=== PATIENT | female | born 1950 | race Caucasian/White ===

== ENCOUNTER → 2017-03-24 | Outpatient (CLI) | payer OTHER, MEDICARE | LOC: BMCIMAGING 09:13 | PROVIDERS: ATTEND Physician Assistant | DX: M16.11 Unilateral primary osteoarthritis, right hip (principal); Z96.642 Presence of left artificial hip joint ==

== ENCOUNTER → 2017-06-03 | Outpatient (CLI) | payer OTHER, MEDICARE | LOC: BMCIMAGING 10:47 | PROVIDERS: ATTEND Orthopaedic Surgery Hand Surgery | DX: M19.012 Primary osteoarthritis, left shoulder (principal); R91.1 Solitary pulmonary nodule ==

== ENCOUNTER 2017-06-30 15:35 | Emergency (ER) | payer OTHER, MEDICARE ==
--- NOTE | 2017-06-30 16:30 | EDPHY ---
HPI/HX/ROS/PE/MDM Narrative: CHIEF COMPLAINT: High blood pressure HISTORY OF PRESENT ILLNESS: The patient is a 67 y/o female with a history of hypertension complaining of high blood pressure. She saw her PCP last month and had a normal BP. Last week she was in [place] and felt fine while hiking there. Yesterday she became lightheaded, shaky, and tired. This morning her symptoms did not improve and her hearing also became distant. Denies loss of consciousness. Her PCP advised her to go the urgent care, who then recommended she present to the ED. She is currently on Losartan for hypertension. 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 Denies cardiac or pulmonary disease. No fever, chills, chest pain, shortness of breath, palpitations, vomiting, diarrhea, urinary complaints, headache, lightheadedness. REVIEW OF SYSTEMS: Aside from elements discussed in the HPI, a comprehensive 10-point review of systems was reviewed and is negative. PAST MEDICAL HISTORY: Hypertension, hypothyroid, product induced asthma, appendectomy, left hip replacement, arthritis SOCIAL HISTORY: Lives in [place], retired, admits to alcohol use VITAL SIGNS: HR: 91, BP: 193/130 others reviewed by me GENERAL: Well-developed, well-nourished, resting comfortably in no respiratory distress. HEENT: Atraumatic. Eyes: No icterus, no injection. Mouth: moist mucous membranes. No erythema or lesions. Neck: supple with no adenopathy. LUNGS: Clear to auscultation bilaterally, no wheezes, rhonchi or rales. CARDIAC: Regular rate and rhythm, no rubs, murmurs or gallops. ABDOMEN: Soft, nontender, nondistended, bowel sounds normal. BACK: No CVA tenderness. EXTREMITIES: No trauma. No edema. Range of motion is normal throughout. NEURO: Alert and oriented, grossly nonfocal. SKIN: Warm and dry, no rash. PSYCHIATRIC: Normal mentation, no agitation. Portions of this note were transcribed by a district medical examiner. I personally performed a history, physical exam, medical decision making, and confirmed accuracy of information the transcribed note. ED Course: The patient is a 67 y/o female with a history of hypertension presenting with hypertension and a BP reading of 193/130 during the physical exam. Other than this, her physical exam is normal. CBC, BMP, troponin, and EKG ordered. 0.5mg PO Ativan and 0.1mg PO clonidine administered. 1715: Patient's BP has not dropped, 0.1mg PO clonidine administered. 1739: 12-LEAD EKG: Please see the full report in [facility]. My interpretation: Normal sinus rhythm with a rate of 94 1731: Reassessed patient and discussed plan for discharge. Her BP is now 136/ 100. Return precautions provided. Patient is comfortable with this plan. MDM: Diff dx considered included hypertension, renal insufficiency, pain, anxiety, hypertensive emergency, hypertensive urgency, ACS. - Data Points Laboratory Results: Laboratory Results 06/30/17 16:05 06/30/17 16:05 Medications Given: Discontinued Medications Clonidine (Catapres) 0.1 mg PO EDNOW ONE Stop: 06/30/17 16:38 Last Admin: 06/30/17 16:55 Dose: 0.1 mg Clonidine (Catapres) 0.1 mg PO EDNOW ONE Stop: 06/30/17 17:14 Last Admin: 06/30/17 17:35 Dose: 0.1 mg Lorazepam (Ativan Injection) 0.5 mg IVP EDNOW ONE Stop: 06/30/17 16:38 Last Admin: 06/30/17 16:55 Dose: 0.5 mg General Time Seen by Provider: 06/30/17 16:09 Initial Vital Signs: Initial Vital Signs Temperature (C) 37.1 C 06/30/17 15:39 Heart Rate 92 06/30/17 15:39 Respiratory Rate 18 06/30/17 15:39 Blood Pressure 196/135 H 06/30/17 15:39 O2 Sat (%) 95 06/30/17 15:39 O2 Delivery Mode Room Air Allergies/Adverse Reactions: No Known Allergies Allergy (Verified 06/30/17 15:37) Home Medications: Medication Instructions Recorded Aspirin [Aspirin 81mg (OTC)] 81 mg PO DAILY 03/06/15 Levothyroxine [Synthroid] 150 mcg PO DAILY06 03/06/15 Losartan/Hydrochlorothiazide 1 each PO DAILY 03/06/15 [Losartan-Hctz 100-25 Mg Tab] Departure - Departure Disposition: Home, Routine, Self-Care Clinical Impression: Hypertension Qualifiers: Hypertension type: unspecified Qualified Code(s): I10 - Essential (primary) hypertension Condition: Good Instructions: Hypertension (ED) Additional Instructions: Follow-up with your primary doctor within 72 hours. Return to the Emergency Department for fever, chest pain, shortness of breath, increasing pain or other worsening of condition. Referrals: Julieta Coffman MD [Primary Care Provider] - As per Instructions Report Scribed for: Naheed Redmond Report Scribed by: Mervat Saxena Date of Report: 06/30/17 Time of Report: 16:31
[2017-06-30] MEDS ORDERED: LORazepam 2 MG/ML INJ IVP ONE (16:37)
[2017-06-30 16:47] LABS: PLATELET COUNT 273 10^3/uL (150-400)
--- NOTE | 2017-06-30 17:42 | CPEKG ---
Heart Rate: 94 RR Interval: 638 P-R Interval: 164 QRSD Interval: 80 QT Interval: 388 QTC Interval: 486 P Conway: 38 QRS Conway: -29 T Wave Conway: 11 EKG Severity - ABNORMAL ECG - EKG Impression: SINUS RHYTHM EKG Impression: LEFT VENTRICULAR HYPERTROPHY EKG Impression: BORDERLINE PROLONGED QT INTERVAL Electronically Signed By: Naheed Redmond 30-Jun-2017 22:39:20
[2017-06-30 18:03] VITALS: RESP 16
[2017-06-30 18:27] VITALS: BP 135/88; PULSE 87; O2SAT 93
[2017-06-30 18:29] VITALS: TEMP 98.2
== END 2017-06-30 18:42 | disposition home or self-care (01) ==
DX: I10 Essential (primary) hypertension (principal); J45.909 Unspecified asthma, uncomplicated; Z79.82 Long term (current) use of aspirin
CPT/HCPCS: 93005; 96374; 99284; J2060

== ENCOUNTER 2017-07-05 12:00 | Emergency (ER) | payer OTHER, MEDICARE ==
[2017-07-05] MEDS ORDERED: ONDANSETRON 4 MG/2 ML VIAL IVP ONE (13:25)
[2017-07-05 13:35] LABS: PLATELET COUNT 330 10^3/uL (150-400)
--- NOTE | 2017-07-05 13:35 | CPEKG ---
Heart Rate: 92 RR Interval: 652 P-R Interval: 156 QRSD Interval: 78 QT Interval: 372 QTC Interval: 461 P Kuna: 50 QRS Kuna: -23 T Wave Kuna: 248 EKG Severity - ABNORMAL ECG - EKG Impression: SINUS RHYTHM EKG Impression: PROBABLE LVH WITH SECONDARY REPOL ABNRM Electronically Signed By: Larry Juarez 05-Jul-2017 13:56:06
[2017-07-05] MEDS ORDERED: IOPAMIDOL (ISOVUE-300) 100 ML BTL ONE (13:44)
--- NOTE | 2017-07-05 14:24 | EDPHY ---
HPI/HX/ROS/PE/MDM Narrative: distended and hyperactive bowel sounds CHIEF COMPLAINT: Abdominal cramping, vomiting HISTORY OF PRESENT ILLNESS: The patient is a 67 y/o female with a history of hypertension complaining of abdominal cramping and vomiting, onset yesterday. She was seen in the ED for high blood pressure on Friday, 5 days ago. At that time she was experiencing dizziness and lightheadedness. She consulted with her PCP, who directed her to begin taking propranolol 3 times daily in addition to her losartan. Each day since, by dinner, her blood pressure is normal. Yesterday, she cooked several quiches. She ate some for lunch and some for dinner. By that evening, she began experiencing abdominal cramping. Abdominal cramps continued through the night and she vomited 4 times. This morning she tried to take her medications but vomited them up. She was nauseated on her drive to the ED. She can feel gas moving through her intestines. She has associated headache. She denies fever, diarrhea, sore throat, urinary complaints, hematemesis, hematuria, or other associated symptoms. She denies history of gallbladder issues, atrial fibrillation, hernias, or diverticulitis. She has had heartburn with alcohol use but denies recent alcohol or ibuprofen use. She had her appendix removed years ago. She was told several years ago she has a bruit in her abdomen. No fever, chills, chest pain, shortness of breath, palpitations, diarrhea, urinary complaints, lightheadedness. REVIEW OF SYSTEMS: Aside from elements discussed in the HPI, a comprehensive 10-point review of systems was reviewed and is negative. PAST MEDICAL HISTORY: Hypertension SOCIAL HISTORY: Daughter at bedside, lives in [place], retired VITAL SIGNS: Reviewed by me GENERAL: Well-developed, well-nourished, resting comfortably in no respiratory distress. HEENT: Atraumatic. Eyes: No icterus, no injection. Mouth: moist mucous membranes. No erythema or lesions. Neck: supple with no adenopathy. LUNGS: Clear to auscultation bilaterally, no wheezes, rhonchi or rales. CARDIAC: Regular rate and rhythm, no rubs, murmurs or gallops. ABDOMEN: Abdomen distended with hyperactive bowel sounds. Soft, nontender. BACK: No CVA tenderness. EXTREMITIES: No trauma. No edema. Range of motion is normal throughout. NEURO: Alert and oriented, grossly nonfocal. SKIN: Warm and dry, no rash. PSYCHIATRIC: Normal mentation, no agitation. ED Course: The patient presents with nausea and vomiting since last night. On exam, she has a distended abdomen with hyperactive bowel sounds. She denies abdominal tenderness. She has associated abdominal cramping. She denies diarrhea. She also informs me a doctor told her she has a bruit in her abdomen. Plan for lab work, abdominal CT, and UA along with 1L fluids and her normal medication. Her blood work was not indicative of an etiology of her symptoms. Her CT shows fluid filled loops of small bowel but no bowel obstruction. Her EKG shows sinus rhythm with LVHs. I reassessed this patient and informed her of the results of her work up. Patient does report that after she returned from CT scan she did have a large diarrheal bowel movement. Given her vomiting and diarrhea and the CT findings of dilated fluid-filled loops of small bowel, I suspect the patient has a gastroenteritis. She is feeling remarkably improved with the fluids and Zofran. Her daughter is with her. Her daughter will be remaining with her this evening. She is comfortable being discharged home with precautions and instructions regarding a bland diet. She will be given Zofran to use as needed. MDM: After obtaining the patient's history and performing an examination, differential diagnosis considered included but was not limited to viral infection, food poisoning, cholecystitis, gastritis, pancreatitis, gastroenteritis, withdrawal symptoms, intraabdominal processes including bowel obstruction or diverticulitis, and medication side effect. - Data Points Imaging Results: Imaging Impressions Abdomen CT 07/05/17 13:26 Impression: 1. Mild fluid-filled distention of small bowel loops diffusely suggestive of ileus. No evidence of small bowel obstruction. 2. Small hiatal hernia. 3. Trace peritoneal ascites. Results called to Dr. Redmond at 2:50 p.m. Laboratory Results: Laboratory Results 07/05/17 12:20 07/05/17 12:20 07/05/17 07/05/17 07/05/17 14:05 13:30 12:20 WBC RBC Hgb Hct MCV MCH MCHC RDW Plt Count MPV Neut % (Auto) Lymph % (Auto) Hamlin % (Auto) Eos % (Auto) Baso % (Auto) Nucleat RBC Rel Count Absolute Neuts (auto) Absolute Lymphs (auto) Absolute Monos (auto) Absolute Eos (auto) Absolute Basos (auto) Absolute Nucleated RBC Immature Gran % Immature Gran # Sodium 136 mEq/L mEq/L (135-145) Potassium 3.9 mEq/L mEq/L (3.5-5.2) Chloride 97 mEq/L mEq/L (97-110) Carbon Dioxide 24 mEq/l mEq/l (22-31) Anion Gap 15 mEq/L mEq/L (8-16) BUN 19 mg/dL mg/dL (7-23) Creatinine 0.9 mg/dL mg/dL (0.6-1.0) Estimated GFR > 60 Glucose 124 mg/dL H mg/dL (70-100) Calcium 10.5 mg/dL H mg/dL (8.5-10.4) Total Bilirubin 1.1 mg/dL mg/dL (0.1-1.4) Conjugated Bilirubin 0.4 mg/dL mg/dL (0.0-0.5) Unconjugated Bilirubin 0.7 mg/dL mg/dL (0.0-1.1) AST 28 IU/L IU/L (14-46) ALT 53 IU/L H IU/L (9-52) Alkaline Phosphatase 93 IU/L IU/L (38-126) Total Protein 8.4 g/dL H g/dL (6.3-8.2) Albumin 4.5 g/dL g/dL (3.5-5.0) Lipase 72 IU/L IU/L (23-300) Urine Color YELLOW Urine Appearance HAZY Urine pH 6.5 (5.0-7.5) Ur Specific Purlear 1.020 (1.002-1.030) Urine Protein TRACE H (NEGATIVE) Urine Ketones NEGATIVE (NEGATIVE) Urine Blood NEGATIVE (NEGATIVE) Urine Nitrate NEGATIVE (NEGATIVE) Urine Bilirubin NEGATIVE (NEGATIVE) Urine Urobilinogen 0.2 EU EU (0.2-1.0) Ur Leukocyte Esterase NEGATIVE (NEGATIVE) Urine RBC NONE SEEN /hpf /hpf (0-3) Urine WBC 1-3 /hpf /hpf (0-3) Ur Epithelial Cells NONE SEEN /lpf /lpf (NONE-1+) Urine Bacteria 1+ /hpf H /hpf (NONE SEEN) Urine Mucus TRACE /lpf /lpf (NONE-1+) Urine Glucose NEGATIVE (NEGATIVE) Nasal Influenza A PCR NEGATIVE FOR FLU A (NEGATIVE) Nasal Influenza B PCR NEGATIVE FOR FLU B (NEGATIVE) 07/05/17 12:20 WBC 15.00 10^3/uL H 10^3/uL (3.80-9.50) RBC 5.23 10^6/uL 10^6/uL (4.18-5.33) Hgb 16.3 g/dL g/dL (12.6-16.3) Hct 45.8 % % (38.0-47.0) MCV 87.6 fL fL (81.5-99.8) MCH 31.2 pg pg (27.9-34.1) MCHC 35.6 g/dL g/dL (32.4-36.7) RDW 13.8 % % (11.5-15.2) Plt Count 330 10^3/uL 10^3/uL (150-400) MPV 10.8 fL fL (8.7-11.7) Neut % (Auto) 87.7 % H % (39.3-74.2) Lymph % (Auto) 7.9 % L % (15.0-45.0) Hamlin % (Auto) 3.7 % L % (4.5-13.0) Eos % (Auto) 0.1 % L % (0.6-7.6) Baso % (Auto) 0.3 % % (0.3-1.7) Nucleat RBC Rel Count 0.0 % % (0.0-0.2) Absolute Neuts (auto) 13.15 10^3/uL H 10^3/uL (1.70-6.50) Absolute Lymphs (auto) 1.19 10^3/uL 10^3/uL (1.00-3.00) Absolute Monos (auto) 0.55 10^3/uL 10^3/uL (0.30-0.80) Absolute Eos (auto) 0.01 10^3/uL L 10^3/uL (0.03-0.40) Absolute Basos (auto) 0.05 10^3/uL 10^3/uL (0.02-0.10) Absolute Nucleated RBC 0.00 10^3/uL 10^3/uL (0-0.01) Immature Gran % 0.3 % % (0.0-1.1) Immature Gran # 0.05 10^3/uL 10^3/uL (0.00-0.10) Sodium Potassium Chloride Carbon Dioxide Anion Gap BUN Creatinine Estimated GFR Glucose Calcium Total Bilirubin Conjugated Bilirubin Unconjugated Bilirubin AST ALT Alkaline Phosphatase Total Protein Albumin Lipase Urine Color Urine Appearance Urine pH Ur Specific Purlear Urine Protein Urine Ketones Urine Blood Urine Nitrate Urine Bilirubin Urine Urobilinogen Ur Leukocyte Esterase Urine RBC Urine WBC Ur Epithelial Cells Urine Bacteria Urine Mucus Urine Glucose Nasal Influenza A PCR Nasal Influenza B PCR Medications Given: Discontinued Medications Ondansetron HCl (Zofran) 4 mg IVP EDNOW ONE Stop: 07/05/17 13:26 Last Admin: 07/05/17 13:29 Dose: 4 mg General Time Seen by Provider: 07/05/17 12:59 Initial Vital Signs: Initial Vital Signs Temperature (C) 36.9 C 07/05/17 12:05 Heart Rate 100 07/05/17 12:05 Respiratory Rate 16 07/05/17 12:05 Blood Pressure 157/98 H 07/05/17 12:05 O2 Sat (%) 95 07/05/17 12:05 O2 Delivery Mode Room Air Allergies/Adverse Reactions: No Known Allergies Allergy (Verified 06/30/17 15:37) Home Medications: Medication Instructions Recorded Aspirin [Aspirin 81mg (OTC)] 81 mg PO DAILY 03/06/15 Levothyroxine [Synthroid] 150 mcg PO DAILY06 03/06/15 Losartan/Hydrochlorothiazide 1 each PO DAILY 03/06/15 [Losartan-Hctz 100-25 Mg Tab] Ondansetron Odt [Zofran Odt 4 mg 4 mg PO Q6 PRN #8 tab 07/05/17 (RX)] Departure - Departure Disposition: Home, Routine, Self-Care Clinical Impression: Nausea Vomiting Qualifiers: Vomiting type: unspecified Vomiting Intractability: non-intractable Nausea presence: with nausea Qualified Code(s): R11.2 - Nausea with vomiting, unspecified Condition: Good Instructions: Acute Nausea and Vomiting (ED) Additional Instructions: 1. Take Zofran under the tongue as directed as needed for nausea. 2. Eat a bland diet for 24 hours of foods like toast, bananas, rice, and applesauce. Continue to drink clear liquids like water, Gatorade, rell eliane, and chicken stock. Introduce new foods as tolerated. 3. Follow-up with your primary care provider for continued symptoms in 2-3 days. 4. Return to the ED for vomit with blood in it or any other worsening of condition. Referrals: Julieta Coffman MD [Primary Care Provider] - As per Instructions Prescriptions: Ondansetron Odt [Zofran Odt 4 mg (RX)] 4 mg PO Q6 PRN #8 tab PRN Reason: Nausea Report Scribed for: Naheed Redmond Report Scribed by: Amy Phillips Date of Report: 07/05/17 Time of Report: 14:58 Physician Review and Approval Statement: Portions of this note were transcribed by a medical/surgery registered nurse. I personally performed a history, physical exam, medical decision making, and confirmed accuracy of information the transcribed note.
[2017-07-05 15:34] VITALS: BP 150/108; PULSE 96; RESP 16; TEMP 99.3; O2SAT 91
== END 2017-07-05 15:33 | disposition home or self-care (01) ==
DX: R11.2 Nausea with vomiting, unspecified (principal); I10 Essential (primary) hypertension
CPT/HCPCS: 74177; 93005; 96374; 99285; J2405; Q9967

== ENCOUNTER → 2017-07-08 | Outpatient (CLI) | payer OTHER, MEDICARE | LOC: FIMAGING 13:31 | PROVIDERS: ATTEND Family Medicine | DX: J98.4 Other disorders of lung (principal) ==

== ENCOUNTER → 2017-07-16 | Outpatient (CLI) | payer OTHER, MEDICARE | LOC: BMCIMAGING 10:32 | PROVIDERS: ATTEND Family Medicine | DX: N63.20 Unspecified lump in the left breast, unspecified quadrant (principal); R91.8 Other nonspecific abnormal finding of lung field ==

== ENCOUNTER → 2017-07-28 | Outpatient (CLI) | payer OTHER, MEDICARE ==
[~2017-07-28] MED LIST: BUPIVACAINE 0.5% 30 ML SDV ONE; LIDOCAINE 1% 300 MG/30 ML SDV ONE
== END ==
LOC: FIMAGING 07:18
PROVIDERS: ATTEND Family Medicine
PROC: 0HBU3ZX Excision of Left Breast, Percutaneous Approach, Diagnostic (ICD-10-PCS; principal; 2017-07-28)
DX: C50.812 Malignant neoplasm of overlapping sites of left female breast (principal)

== ENCOUNTER 2017-08-15 06:24 | Day surgery (SDC) | payer OTHER, MEDICARE ==
[2017-08-15] MEDS ORDERED: LR 1,000 ML IV ONE (06:46)
[2017-08-15] MEDS ORDERED: LIDOCAINE 1% 300 MG/30 ML SDV ONE (07:45)
[2017-08-15] MEDS ORDERED: BUPIVACAINE 0.25% 30 ML SDV ONE (10:22)
--- NOTE | 2017-08-15 10:42 | PDHPUP ---
History & Physical Update H&P update statement: This history and physical update is based on an assessment of the patient which was completed after admission or registration (within 24 hours), but prior to the surgery/procedure. H&P update: H&P reviewed & patient examined, no change in patient's condition since H&P completed
[2017-08-15] MEDS ORDERED: ceFAZolin 2 GM/SWFI 2 GM/20 ML SYR IVP ONE (10:43)
[2017-08-15] MEDS ORDERED: MIDAZOLAM 2 MG/2 ML VIAL IVP ONE (10:45)
--- NOTE | 2017-08-15 10:48 | PDANEPAE ---
ANE History of Present Illness L. 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 TREATED WITH STEROIDS AND INHALERS - Neurologic History Hx Cerebrovascular Accident: No Hx Seizures: No Hx Dementia: No - Endocrine History Hx Diabetes: No Endocrine History Comment: HYPOTHYROID - Renal History Hx Renal Disorders: No - Liver History Hx Hepatic Disorders: No - Neurological & Psychiatric Hx Hx Neurological and Psychiatric Disorders: No - Cancer History Hx Cancer: No - Congenital Disorder History Hx Congenital Disorders: No - GI History Hx Gastrointestinal Disorders: No Gastrointestinal History Comment: ACID REFLUX - Other Health History Other Health History: LT SHLDR LIMITED ROM UNABLE TO LIE ON THIS SIDE. ARTHRITIS - Chronic Pain History Chronic Pain: Yes (LT SHLDR) - Surgical History Prior Surgeries: LT TOTAL HIP 02/2015. REMVL RT BREAST CYST. APPENDECTOMY ANE Review of Systems Review of Systems: - Exercise capacity METS (RN): 4 METS ANE Patient History - Allergies Allergies/Adverse Reactions: No Known Allergies Allergy (Verified 08/15/17 06:45) - Home Medications Home medications: home medication list seen and reviewed Home Medications: Levothyroxine [Synthroid] 150 mcg PO DAILY06 03/06/15 [Last Taken 08/15/17 05:30 ] Losartan/Hydrochlorothiazide [Losartan-Hctz 100-25 Mg Tab] 1 each PO DAILY06 [Last Taken 08/14/17] Metoprolol Succinate DAILY06 08/08/17 [Last Taken 08/15/17 05:30] - NPO status NPO Since - Liquids (Date): 08/15/17 NPO Since - Liquids (Time): 05:30 NPO Since - Solids (Date): 08/14/17 NPO Since - Solids (Time): 20:30 - Anes Hx Anes Hx: no prior problems - Smoking Hx Smoking Status: Former smoker - Alcohol Use Alcohol Use: Rarely - Family Anes Hx Family Anes Hx: none Family Hx Anesthesia Complications: NEG ANE Labs/Vital Signs - Labs - CBC WBC: reviewed and okay - Vital Signs Blood Pressure: 149/102 Heart Rate: 63 Respiratory Rate: 16 O2 Sat (%): 93 Height: 162.56 cm Weight: 73.028 kg ANE Physical Exam - Airway Mallampati Score: Class 2 - Pulmonary Pulmonary: no respiratory distress - Cardiovascular Cardiovascular: regular rate and rhythym - ASA Status ASA Status: II ANE Anesthesia Plan Anesthesia Plan: GA w LMA
[2017-08-15] MEDS ORDERED: PROPOFOL/EMULSION 500 MG/50 ML BOTTLE IV ONE (11:13)
[2017-08-15] MEDS ORDERED: fentaNYL 100 MCG/2 ML INJ ONE (11:13)
[2017-08-15] MEDS ORDERED: LIDOCAINE 2% JELLY 5 ML TUBE ONE (11:15)
[2017-08-15] MEDS ORDERED: LIDOCAINE 2% 100 MG/5 ML SYR ONE (11:16)
[2017-08-15] MEDS ORDERED: ONDANSETRON 4 MG/2 ML VIAL ONE (11:17)
[2017-08-15] MEDS ORDERED: DEXAMETHASONE 4 MG/ML VIAL ONE (11:17)
[2017-08-15] MEDS ORDERED: PHENYLEPHRINE HCL 100 MCG/ML SYR ONE (12:20)
[2017-08-15] MEDS ORDERED: AVITENE POWDER 1 GM JAR TP ONE (12:33)
[2017-08-15] MEDS ORDERED: PROPOFOL 200 MG/20 ML VIAL ONE (12:38)
[2017-08-15] MEDS ORDERED: OXYCODONE/APAP 5/325 TAB PO PRN ×2 (13:02→14:13)
[2017-08-15] MEDS ORDERED: ONDANSETRON 4 MG/2 ML VIAL IVP PRN (13:02)
[2017-08-15] MEDS ORDERED: LABETALOL HCL 5 MG/ML 20 ML MDV IVP PRN (13:02)
[2017-08-15] MEDS ORDERED: PHENYLEPHRINE HCL 100 MCG/ML SYR IVP PRN (13:02)
[2017-08-15] MEDS ORDERED: LR 500 ML IV PRN (13:02)
[2017-08-15] MEDS ORDERED: METOCLOPRAMIDE 10 MG/2 ML VIAL IVP PRN (13:02)
[2017-08-15] MEDS ORDERED: HYDROCODONE/APAP 5/325 TAB PO PRN (13:02)
[2017-08-15] MEDS ORDERED: DEXAMETHASONE 4 MG/ML VIAL IVP PRN (13:02)
[2017-08-15] MEDS ORDERED: ACETAMINOPHEN 500 MG TAB PO PRN (13:02)
[2017-08-15] MEDS ORDERED: NALOXONE HCL 0.4 MG/ML INJ IVP PRN (13:02)
[2017-08-15] MEDS ORDERED: PROMETHAZINE HCL 25 MG/ML INJ IVP PRN (13:02)
[2017-08-15] MEDS ORDERED: ALBUTEROL 3 ML DEYVIAL IH PRN (13:02)
[2017-08-15] MEDS ORDERED: fentaNYL 100 MCG/2 ML INJ IVP PRN (13:02)
[2017-08-15] MEDS ORDERED: MEPERIDINE 25 MG/ML SYR IVP PRN (13:02)
--- NOTE | 2017-08-15 13:26 | POSTOPPROG ---
Post Op Note Date of Operation: 08/15/17 Surgeon: Tomas Mason (, FACS) Room Designer: BOWEN Valencia-3 Anesthesiologist: Les Sprague MD Anesthesia: GET(General Endotracheal) Pre-op Diagnosis: left breast cancer Post-op Diagnosis: left breast cancer Procedure: left partial mastectomy with senintel node mapping and SALND Findings: sentinel nodes negative Inf/Abcess present in the surg proc area at time of surgery?: No EBL: Minimal (25) Specimen(s): left axillary sentinel nodes/left partial mastectomy + additional medial, posterior, inferior margins
[2017-08-15] MEDS ORDERED: ONDANSETRON DISINTEGRATING 4 MG TAB PO PRN (14:13)
[2017-08-15 14:32] VITALS: BP 141/90; PULSE 84; RESP 16; TEMP 98.6; O2SAT 90
--- NOTE | 2017-08-15 21:36 | GOP ---
[f rep st] OPERATIVE REPORT Amended report DATE OF OPERATION: 08/15/2017 SURGEON: Tomas Mason MD, FACS REGISTERED NURSE BONE MARROW TRANSPLANT: MIRANDA Valencia3. ANESTHESIA: General endotracheal. ANESTHESIOLOGIST: Les Sprague MD. PREOPERATIVE DIAGNOSIS: Left breast carcinoma. POSTOPERATIVE DIAGNOSIS: Left breast carcinoma. PROCEDURE PERFORMED: Left partial mastectomy with sentinel lymph node mapping and superficial axillary lymph node dissection. FINDINGS: Four sentinel nodes submitted for frozen section with no evidence of metastatic malignancy. Permanent section pending. Left partial mastectomy specimen with clip in tumor confirmed by specimen mammogram. Additional medial. Inferior, posterior margins submitted for permanent section. ESTIMATED BLOOD LOSS: 25 mL. DESCRIPTION OF PROCEDURE: After informed consent was obtained, the patient was brought to the operating room and placed under general anesthesia. Left breast was prepped and draped in usual fashion. The patient had undergone preoperative sentinel lymph node injection and lymphoscintigraphy suggested migration to the axilla. A needle localization was performed and images were reviewed intraoperatively and available throughout the procedure. Images showed Kopan's wire that was inserted through the superior breast and advanced into the tumor and adjacent to the clip. This was well visualized on the medial, lateral, oblique views that were taken after the procedure. Before proceeding, a time-out and identification of the patient was performed. The axilla was interrogated with the Neoprobe gamma detector. This localized the area of maximum intensity to the lower axilla. The skin was marked with a marking pen and infiltrated with 0.25% Marcaine, and incised transversely. Dissection was carried through the skin and subcutaneous tissues and superficial axillary fascia. Increased counts were observed in 4 lymph nodes that were individually excised and submitted for frozen section as well as permanent section and immunohistochemical stains. The lymph nodes were detached from their lymphovascular channels, and these were hemoclipped and/or cauterized for hemostasis. The nodes did not appear enlarged and were submitted to Pathology fresh. Hemostasis appeared secure within the axilla. Incision was left open while we were waiting for the results of frozen section. The partial mastectomy was then performed as follows: The planned incision site was infiltrated with 0.25% Marcaine and incised with a scalpel. Dissection carried through skin and subcutaneous tissues. Dissection into the deep subcutaneous plane was carried out cephalad. The wire was intercepted and the breast tissue around the shaft and tip of the wire were widely excised down to the retromammary fat plane. Hemostasis was secured with cautery. The specimen was removed from the field and oriented with a margin-marker kit, separately designating the superior, inferior, medial, lateral, anterior and posterior margins. This was submitted for specimen, mammogram and subsequently for permanent section. The tumor was palpable within the lumpectomy specimen and appeared to be closest to the medial inferior and posterior margins. I chose to re-excise these margins to a depth of 5-6 mm, starting posteriorly down to and including the pectoralis fascia inferiorly and medially from the lumpectomy cavity. Hemoclips were placed around the perimeter of the base of the cavity. Subcutaneous tissues were undermined circumferentially in an oncoplastic technique to allow adjacent tissue transfer, to reduce the negative cosmetic impact of the procedure. Several centimeters on either side of the lumpectomy cavity were liberated using cautery in the deep subcutaneous plane and/or superficial breast tissue extending from the retro areolar region medially to the sternal border, laterally to the upper outer quadrant and cephalad slightly in the direction of the infraclavicular fossa. The cavity was again inspected for hemostasis. Avitene was placed into the cavity and the adjacent tissue flaps were approximated with 3-0 Monocryl suture. The subcutaneous tissues were approximated with 3-0 Monocryl suture. The skin was closed with 4-0 Monocryl suture in a subcuticular fashion. In the interim, the results of the sentinel nodes became available and were reported as negative by Dr. Dillard. The axilla was inspected, hemostasis appeared secure. Subcutaneous tissues were approximated with 3-0 Monocryl suture. Skin was closed with 4-0 Monocryl suture in a subcuticular fashion. Mastisol and Steri-Strips were applied. Needle, sponge and instrument count were correct. COMPLICATIONS: None. /[id number]/MODL Jose De Jesus acc#, 08/18/17, amee TERRELL
== END 2017-08-15 15:15 | disposition home or self-care (01) ==
LOC: FIMAGING 06:24
PROVIDERS: ATTEND Surgery
PROC: 0HBU0ZZ Excision of Left Breast, Open Approach (ICD-10-PCS; principal; 2017-08-15 11:15)
PROC: 07B60ZX Excision of Left Axillary Lymphatic, Open Approach, Diagnostic (ICD-10-PCS; principal; 2017-08-15 11:15)
DX: C50.912 Malignant neoplasm of unspecified site of left female breast (principal)
CPT/HCPCS: 19302; 76098; 78195; A9520; J0690; J1100; J2001; J2250; J2370; J2405; J2704; J3010

== ENCOUNTER 2017-10-03 13:56 | Day surgery (SDC) | payer OTHER, MEDICARE ==
[2017-10-03] MEDS ORDERED: ceFAZolin 2 GM/SWFI 2 GM/20 ML SYR IVP ONE (14:04)
[2017-10-03] MEDS ORDERED: LIDOCAINE 1% 2 ML INJ ID PRN (14:05)
[2017-10-03] MEDS ORDERED: LR 1,000 ML IV ONE (14:05)
[2017-10-03] MEDS ORDERED: LIDOCAINE 1% 300 MG/30 ML SDV ONE (14:06)
[2017-10-03] MEDS ORDERED: BUPIVACAINE/EPI 0.5% 30 ML SDV ONE (14:06)
[2017-10-03] MEDS ORDERED: NA BICARBONATE 50 MEQ/50 ML VIAL ONE (14:06)
[2017-10-03] MEDS ORDERED: NALOXONE HCL 0.4 MG/ML INJ IVP PRN (14:32)
[2017-10-03] MEDS ORDERED: MIDAZOLAM 2 MG/2 ML VIAL ONE (14:32)
[2017-10-03] MEDS ORDERED: fentaNYL 100 MCG/2 ML INJ IVP PRN (14:32)
[2017-10-03] MEDS ORDERED: DEXAMETHASONE 4 MG/ML VIAL IVP PRN (14:32)
[2017-10-03] MEDS ORDERED: HYDROCODONE/APAP 5/325 TAB PO PRN (14:32)
[2017-10-03] MEDS ORDERED: MIDAZOLAM 2 MG/2 ML VIAL IVP ONE (14:32)
[2017-10-03] MEDS ORDERED: ALBUTEROL 3 ML DEYVIAL IH PRN (14:32)
[2017-10-03] MEDS ORDERED: ACETAMINOPHEN 500 MG TAB PO PRN (14:32)
[2017-10-03] MEDS ORDERED: ONDANSETRON 4 MG/2 ML VIAL IVP PRN (14:32)
--- NOTE | 2017-10-03 14:33 | PDANEPAE ---
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 ARTHRITIS - Chronic Pain History Chronic Pain: Yes (LT SHLDR) - Surgical History Prior Surgeries: LT TOTAL HIP 02/2015. REMVL RT BREAST CYST. APPENDECTOMY ANE Review of Systems Review of Systems: - Exercise capacity METS (RN): 4 METS ANE Patient History - Allergies Allergies/Adverse Reactions: No Known Allergies Allergy (Verified 09/30/17 16:12) - Home Medications Home Medications: Levothyroxine [Synthroid 150 mcg (*)] 03/06/15 [Last Taken 08/15/17 05:30] Losartan/Hydrochlorothiazide [Losartan-Hctz 100-25 mg Tab] 03/06/15 [Last Taken 08/14/17] Metoprolol Succinate 08/08/17 [Last Taken 08/15/17 05:30] - NPO status NPO Since - Liquids (Date): 10/03/17 NPO Since - Liquids (Time): 11:45 NPO Since - Solids (Date): 10/02/17 NPO Since - Solids (Time): 20:30 - Smoking Hx Smoking Status: Former smoker - Family Anes Hx Family Hx Anesthesia Complications: NEG ANE Labs/Vital Signs - Vital Signs Blood Pressure: 167/103 Heart Rate: 77 Respiratory Rate: 18 O2 Sat (%): 92 Height: 162.56 cm Weight: 73.028 kg ANE Physical Exam - Airway Neck exam: FROM Mallampati Score: Class 2 Mouth exam: normal dental/mouth exam - Pulmonary Pulmonary: clear to auscultation - Cardiovascular Cardiovascular: regular rate and rhythym - ASA Status ASA Status: II ANE Anesthesia Plan Anesthesia Plan: GA with mask
[2017-10-03] MEDS ORDERED: PROPOFOL/EMULSION 500 MG/50 ML BOTTLE IV ONE (14:35)
[2017-10-03] MEDS ORDERED: PROPOFOL 200 MG/20 ML VIAL ONE (14:39)
[2017-10-03] MEDS ORDERED: fentaNYL 100 MCG/2 ML INJ ONE (14:41)
--- NOTE | 2017-10-03 15:39 | POSTANESTH ---
Post Anesthetic Evaluation Cardiovascular Status: Normal, Stable Respiratory Status: Normal, Stable Level of Consciousness/Mental Status: Can Participate in Eval, Alert and Oriented Pain Control: Adequate, Prn Tx Ordered Nausea/Vomiting Control: Adequate, Prn Tx Ordered
[2017-10-03] MEDS ORDERED: ONDANSETRON DISINTEGRATING 4 MG TAB PO PRN (15:42)
[2017-10-03] MEDS ORDERED: OXYCODONE/APAP 5/325 TAB PO PRN (15:42)
--- NOTE | 2017-10-03 15:42 | POSTOPPROG ---
Post Op Note Date of Operation: 10/03/17 Surgeon: Tomas Mason (, FACS) Top Collar Baster: Matti Low, JAVA SDET Anesthesiologist: Jeison Peraza DO Anesthesia: GET(General Endotracheal) Pre-op Diagnosis: left breast cancer s/p partial mastectomy/SLN bx Post-op Diagnosis: same Indication: + ant, inf, lateral margins Procedure: re-excision left breast ant, lat, inf margins Findings: seroma cavity Inf/Abcess present in the surg proc area at time of surgery?: No EBL: Minimal (10 ml) Specimen(s): 1. anterior margin left partial mastectomy cavity\ 2. inferior margin left partial mastectomy cavity 3. lateral margin left partial mastectomy cavity
[2017-10-03 16:28] VITALS: BP 136/90
--- NOTE | 2017-10-03 18:08 | GOP ---
[f rep st] OPERATIVE REPORT DATE OF OPERATION: SURGEON: Tomas Mason MD GAME TESTER: Matti Low CST. ANESTHESIA: Monitored anesthesia care. ANESTHESIOLOGIST: Jeison Peraza D.O. PREOPERATIVE DIAGNOSIS: 1. Left breast carcinoma, status post partial mastectomy and sentinel lymph node mapping and biopsy (T1 C N1a infiltrating ductal carcinoma). 2. Positive anterior and lateral margins with close inferior margin. POSTOPERATIVE DIAGNOSIS: 1. Left breast carcinoma, status post partial mastectomy and sentinel lymph node mapping and biopsy (T1 C N1a infiltrating ductal carcinoma). 2. Positive anterior and lateral margins with close inferior margin. PROCEDURE PERFORMED: Reexcision of left breast partial mastectomy, anterior, inferior, and lateral m argins. FINDINGS: Seroma cavity with unremarkable appearing fibrofatty tissue excised at the anterior, infer ior and lateral margins, each individually inked and submitted for permanent section. ESTIMATED BLOOD LOSS: 10 cc. DESCRIPTION OF PROCEDURE: After informed consent was obtained, the patient was brought to the operat ing room and placed under deep sedation. The left breast was prepped and draped in usual fashion. B efore proceeding, a time-out and identification of the patient was performed. The patient received 2 g of Ancef perioperatively. The old incision was infiltrated with 1% lidocaine mixed with 0.5% Zohaib shoshana plain. The skin was excised in an ellipse, full thickness along with all the anterior tissue di rectly into the seroma cavity. This specimen was inked with green ink on the skin surface to designa te the final anterior margin. The seroma cavity was evacuated of serous fluid. The inferior and lat eral jasso were liberally infiltrated with local anesthetic and excised to a depth of 8-10 mm along t he entire length of the inferior and lateral margins. Each was individually inked and submitted for permanent section. Hemostasis was secured within the cavity. Deep subcutaneous tissues were approxi mated with 3-0 Vicryl suture. Skin was closed with 4-0 Monocryl suture in a subcuticular fashion. M astisol and Steri-Strips were applied. The patient was returned to the recovery room in satisfactory condition. Needle, sponge, and instrument counts were correct. COMPLICATIONS: None. /[id number]/MODL
== END 2017-10-03 16:45 | disposition home or self-care (01) ==
LOC: FSGY 13:56
PROVIDERS: ATTEND Surgery
PROC: 0HBU0ZZ Excision of Left Breast, Open Approach (ICD-10-PCS; principal; 2017-10-03 15:00)
DX: C50.912 Malignant neoplasm of unspecified site of left female breast (principal); I10 Essential (primary) hypertension; M25.511 Pain in right shoulder
CPT/HCPCS: J0690; J2250; J2704; J3010

== ENCOUNTER → 2018-07-30 | Outpatient (CLI) | payer OTHER, MEDICARE | LOC: BMCIMAGING 09:39 | PROVIDERS: ATTEND Family Medicine | DX: Z12.31 Encounter for screening mammogram for malignant neoplasm of breast (principal); Z85.3 Personal history of malignant neoplasm of breast ==

== ENCOUNTER → 2018-08-10 | Outpatient (CLI) | payer OTHER, MEDICARE | LOC: BMCIMAGING 15:43 | PROVIDERS: ATTEND Orthopaedic Surgery | DX: M16.11 Unilateral primary osteoarthritis, right hip (principal) ==

== ENCOUNTER → 2018-09-01 | Outpatient (CLI) | payer OTHER, MEDICARE | LOC: FIMAGING 10:43 | PROVIDERS: ATTEND Orthopaedic Surgery | DX: Z01.818 Encounter for other preprocedural examination (principal); M16.11 Unilateral primary osteoarthritis, right hip; M22.2X2 Patellofemoral disorders, left knee; M25.462 Effusion, left knee; Z96.642 Presence of left artificial hip joint ==

== ENCOUNTER 2018-10-12 07:21 | Inpatient (IN) | payer OTHER, MEDICARE ==
--- NOTE | 2018-10-12 06:38 | PDIAF ---
- Diagnosis Diagnosis: right hip djd Code Status: Full Code - Medication Management Discharge Medications: electronically signed and located in the Home Medication List. - Orders Services needed: Home Care, Physical Therapy Home Care Face to Face: I certify that this patient was under my care and that I had the required [id number] encounter meeting the encounter requirements on the discharge day. My findings support the fact that the patient is homebound as defined in Home Care Face to Face Continued: CMS Chapter 7 Medicare Benefits Manual 30.1.1 , The condition of the patient is such that there exists a normal inability to leave home and consequently, leaving home would require a considerable and taxing effort. Isolation Type: None Diet Recommendation: no restrictions on diet Diet Texture: Regular Texture Diet Additional Instructions: TOTAL JOINT ARTHROPLASTY DISCHARGE INSTRUCTIONS 1. Your surgeon follows the [facility] protocol for reducing your risk of DVT (blood clots) following surgery. Medication will be ordered to prevent blood clots. A sudden increase in calf pain and/or swelling could indicate a blood clot in your leg. If this occurs, please call your surgeon or his/her equal opportunity assistant. An ultrasound of the leg may be necessary to diagnose a blood clot. If you have conditions that make you a higher risk for blood clots, your surgeon may use more aggressive ways to prevent them. Notify your surgeon if you think you are a high risk for blood clots. 2. Wear your white surgical stockings (TRACY hose) for 2 weeks. This decreases your swelling and may help prevent blood clots. It is ok to remove TRACY hose at night time to give your legs a break. 3. Swelling and bruising in the surgical leg is common. If you feel that it is excessive, please notify your surgeon. 4. Elevate your surgical leg with the ankle above the hip several times every day. Please keep the leg straight when you elevate by putting pillows under your foot. Do not put pillows under your knee. This will make being able to fully straighten more difficult. This is uncomfortable, but try to do it as much as possible. 5. For total knee replacements use compressive wrap on your knee for 3-5 days after surgery, then you can discontinue it. 6. Use a walker or crutches for 1-2 weeks. Progress your weight-bearing as tolerated. You may start to use a cane when you feel stable and safe. 7. You will receive physical therapy instructions in the hospital. Continue those exercises at home. There are additional exercises in the total joint booklet you were given before surgery. Outpatient physical therapy will begin 7- 10 days after surgery. Please schedule this in advance. 8. Use ice on your knee at least 3-5 times every day for 30 minutes. This helps reduce pain and swelling. Also use it at night before falling asleep. 9. Leave your surgical dressing in place for 2 weeks. Your dressing is water resistant, but not waterproof. Cover it with Saran Wrap or Wcssn-n-Irgv before showering. You may shower as soon as you feel safe entering a shower. If you notice bleeding from your incision 2 or 3 days after surgery, please notify your surgeon. 10. Due to narcotics, decreased activity and altered diet, most patients experience constipation after surgery. Use lvck-cdt-[id number] stool softeners while you are on narcotics. 11. You may drive a car when you are comfortable bearing weight, have good muscular control of your leg and are off narcotics. This usually occurs 2-4 weeks after surgery, depending on which leg was operated on. 12. If there are questions not addressed here, please refer the [facility] book given for more information. If you still have questions, please contact your surgeon s office. 13. If you have a life-threatening emergency, please call 911 and go to the emergency room immediately. For non-life threatening emergencies, please call your physicians office for advice before going to the emergency room. - Follow Up Care Current Providers and Referrals: Julieta Coffman MD [Primary Care Provider] - Silas German MD [Medical Doctor] -
--- NOTE | 2018-10-12 06:39 | PDHPUP ---
History & Physical Update H&P update statement: This history and physical update is based on an assessment of the patient which was completed after admission or registration (within 24 hours), but prior to the surgery/procedure. H&P update: no change in patient's condition since H&P completed
[~2018-10-12 07:21] MED LIST changes: -BUPIVACAINE 0.5% 30 ML SDV ONE; -LIDOCAINE 1% 300 MG/30 ML SDV ONE; +ROPIVACAINE 0.2% 80 MG, EPINEPHrine 0.2 MG, KETOROLAC TROMETHAMINE 30 MG, morphINE 10 M... IU ONE; +TRANEXAMIC ACID 1,000 MG in NS 100 ML IV ONE
[2018-10-12] MEDS ORDERED: FAMOTIDINE 20 MG TAB PO ONE (07:32)
[2018-10-12] MEDS ORDERED: ceFAZolin 2 GM/DEXTROSE 100 ML IV ONE (07:32)
[2018-10-12] MEDS ORDERED: ACETAMINOPHEN 325 MG TAB PO ONE (07:32)
[2018-10-12] MEDS ORDERED: LR 1,000 ML IV ONE (07:33)
[2018-10-12] MEDS ORDERED: ceFAZolin 1 GM/5 ML SYR ONE (08:47)
--- NOTE | 2018-10-12 08:51 | PDANEPAE ---
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 - Neurologic History Hx Cerebrovascular Accident: No Hx Seizures: No Hx Dementia: No - Endocrine History Hx Diabetes: No Endocrine History Comment: HYPOTHYROID - Renal History Hx Renal Disorders: No Renal History Comment: pre-op with pcp showed elevated creat but she is monitoring and will re-check in 6 months - Liver History Hx Hepatic Disorders: No - Neurological & Psychiatric Hx Hx Neurological and Psychiatric Disorders: No - Cancer History Hx Cancer: No Cancer History Comment: breast ca- surgery and radiation only - Congenital Disorder History Hx Congenital Disorders: No - GI History Hx Gastrointestinal Disorders: No Gastrointestinal History Comment: ACID REFLUX - Other Health History Other Health History: LT SHLDR LIMITED ROM UNABLE TO LIE ON THIS SIDE. ARTHRITIS - Chronic Pain History Chronic Pain: Yes (LT SHLDR) - Surgical History Prior Surgeries: LT TOTAL HIP 02/2015. REMVL RT BREAST CYST. APPENDECTOMY ANE Review of Systems Review of Systems: - Exercise capacity METS (RN): 4 METS ANE Patient History - Allergies Allergies/Adverse Reactions: No Known Allergies Allergy (Verified 09/28/18 10:12) - Home Medications Home medications: home medication list seen and reviewed Home Medications: Ascorbate Calcium/Bioflavonoid [Micki-C 500 mg Tablet] 2 each PO DAILY 09/23/18 [Last Taken 1 Week Ago ~10/05/18] Aspirin [Aspirin 81mg (*)] 81 mg PO DAILY 09/23/18 [Last Taken 1 Week Ago ~10/05] Cholecalciferol (Vitamin D3) [Vitamin D3] 5,000 unit PO DAILY 09/23/18 [Last Taken 1 Week Ago ~10/05/18] Herbals/Supplements -Info Only 1 ea PO DAILY 09/23/18 [Last Taken 1 Week Ago ~] Levothyroxine [Synthroid 137 mcg (*)] 137 mcg PO DAILY06 09/23/18 [Last Taken ] Losartan/Hydrochlorothiazide [Losartan-Hctz 100-25 mg Tab] 1 each PO DAILY 09/23 [Last Taken 10/11/18] Melatonin/Pyridoxine [Melatonin 5 mg Tablet] 1 each PO HS 09/23/18 [Last Taken 1 Month Ago ~09/11/18] Metoprolol Succinate [Toprol Xl] 50 mg PO DAILY 09/23/18 [Last Taken 10/12/18] Multivitamins [Multivitamin (*)] 1 each PO DAILY 09/23/18 [Last Taken 1 Week Ago ~10/05/18] - NPO status NPO Since - Liquids (Date): 10/12/18 NPO Since - Liquids (Time): 07:00 NPO Since - Solids (Date): 10/11/18 NPO Since - Solids (Time): 19:00 - Anes Hx Anes Hx: no prior problems - Smoking Hx Smoking Status: Former smoker - Family Anes Hx Family Hx Anesthesia Complications: NEG ANE Labs/Vital Signs - Vital Signs Heart Rate: 71 Respiratory Rate: 16 O2 Sat (%): 93 Height: 5 ft 4 in Weight: 76.204 kg ANE Physical Exam - Airway Neck exam: FROM Mallampati Score: Class 2 Mouth exam: normal dental/mouth exam - Cardiovascular Cardiovascular: regular rate and rhythym - ASA Status ASA Status: II ANE Anesthesia Plan Anesthesia Plan: spinal
[2018-10-12] MEDS ORDERED: MIDAZOLAM 2 MG/2 ML VIAL IVP ONE (08:52)
[2018-10-12] MEDS ORDERED: PROPOFOL/EMULSION 500 MG/50 ML BOTTLE IV ONE ×2 (09:12→10:22)
[2018-10-12] MEDS ORDERED: fentaNYL 100 MCG/2 ML INJ ONE (09:47)
[2018-10-12] MEDS ORDERED: ONDANSETRON 4 MG/2 ML VIAL IVP PRN ×2 (10:38→10:49)
[2018-10-12] MEDS ORDERED: TEMAZEPAM 15 MG CAP PO PRN (10:38)
[2018-10-12] MEDS ORDERED: MAGNESIUM HYDROXIDE 30 ML UDCUP PO PRN (10:38)
[2018-10-12] MEDS ORDERED: PROMETHAZINE HCL 25 MG SUPPR PR PRN (10:38)
[2018-10-12] MEDS ORDERED: ONDANSETRON DISINTEGRATING 4 MG TAB PO PRN (10:38)
[2018-10-12] MEDS ORDERED: LACTULOSE 20 GM/30 ML UDCUP PO PRN (10:38)
[2018-10-12] MEDS ORDERED: CYCLOBENZAPRINE 10 MG TAB PO PRN (10:38)
[2018-10-12] MEDS ORDERED: diphenhydrAMINE 25 MG CAP PO PRN (10:38)
[2018-10-12] MEDS ORDERED: POLYETHYLENE GLYCOL 3350 17 GM PKT PO PRN (10:38)
[2018-10-12] MEDS ORDERED: DIPHENOXYLATE/ATROPINE LOMOTIL 1 TAB PO PRN (10:38)
[2018-10-12] MEDS ORDERED: METOCLOPRAMIDE 10 MG/2 ML VIAL IVP PRN (10:38)
[2018-10-12] MEDS ORDERED: PROMETHAZINE HCL 25 MG/ML INJ IVP PRN (10:38)
[2018-10-12] MEDS ORDERED: BISACODYL 10 MG SUPP PR PRN (10:38)
--- NOTE | 2018-10-12 10:38 | POSTOPPROG ---
Post Op Note Date of Operation: 10/12/18 Surgeon: Silas German Boilermaker Ship: John Anesthesiologist: Bessy Anesthesia: Spinal Pre-op Diagnosis: Right hip OA Post-op Diagnosis: Right hip OA Indication: Right hip OA Procedure: Right ALEC, anterior approach, FABIANO assist Findings: Right hip OA Inf/Abcess present in the surg proc area at time of surgery?: No Depth: Deep Incisional (Fascial) EBL: 100-500 Drains: Hemovac
[2018-10-12] MEDS ORDERED: HYDROmorphONE/DILAUDID 1 MG/ML INJ IVP PRN (10:49)
[2018-10-12] MEDS ORDERED: NALOXONE HCL 0.4 MG/ML INJ IVP PRN (10:49)
[2018-10-12] MEDS ORDERED: fentaNYL 100 MCG/2 ML INJ IVP PRN (10:49)
--- NOTE | 2018-10-12 10:51 | PDMN ---
Medical Necessity Medical necessity: [facility] [place] S560 Hip Arthroplasty, A-2 days: 68 yo s/p ALEC, [facility] IP only
[2018-10-12] MEDS ORDERED: LR 1,000 ML IV SCH (11:00)
[2018-10-12] MEDS: METOPROLOL SUCCINATE XR 50 MG TAB PO SCH (12:41)
[2018-10-12] MEDS: TRANEXAMIC ACID 650 MG TAB PO SCH ×2 (13:52→21:37)
[2018-10-12] MEDS: LOSARTAN/HCTZ 50/12.5 1 TAB PO SCH (15:20)
[2018-10-12] MEDS: oxyCODONE IR 5 MG TAB PO PRN ×2 (15:20→21:34)
--- NOTE | 2018-10-12 15:32 | ASMTCMCOM ---
CM Note CM Note Notes: Pt is s/p R ALEC. PT/OT evals are pending. If home care is indicated, [facility] is following. Pt lives up [facility] in [place]. CM will follow for any d/c needs. D/C plan: TBD Date Signed: 10/12/2018 03:31 PM Electronically Signed By:KELLY Sullivan
--- NOTE | 2018-10-12 16:10 | SOAPPROG ---
SOAP Progress Note Assessment/Plan: Assessment: s/p right ALEC, anterior approach, Erick assist - procedure earlier this morning Plan: Begin discharge planning - home, will have support from family/friends, home health PT Continue PT - follow anterior ALEC precautions Continue pain medication Continue VTE ppx - aspirin 325 mg once daily, TRACY stewart, SCDs Remove drain tomorrow 10/12/18 16:06 10/12/18 16:10 Subjective: Patient states she is feeling really good, there is minimal pain at this time. She reports being familiar with ALEC recovery since she has already had the left hip replaced several years ago. She is planning to go home tomorrow and will have the support of her family and friends. She has home PT scheduled for a couple weeks and then will start outpatient PT. She denies shortness of breath, chest pain, fever, chills, nausea, vomiting, calf pain. Objective: Vital Signs Temp Pulse Resp BP Pulse Ox 36.6 C 71 14 163/110 H 93 10/12/18 14:45 10/12/18 14:45 10/12/18 14:45 10/12/18 14:55 10/12/18 14:45 10/11/18 10/12/18 10/13/18 05:59 05:59 05:59 Intake Total 2074 Output Total 30 Balance 2044 Patient resting comfortably in bed, no acute distress. RLE: Surgical wound dressings are clean, dry and intact. Drain is in place. Lower leg compartments are soft and nontender. She can actively DF and PF her right foot and great toe. Grossly NVI distally. ICD10 Worksheet Patient Problems: Problems Problem Status Onset Unilateral primary osteoarthritis, right hip Acute Hypertension Acute
[2018-10-12] MEDS: ceFAZolin 2 GM/DEXTROSE 100 ML IV SCH (16:55)
[2018-10-12] MEDS: ACETAMINOPHEN 325 MG TAB PO SCH ×2 (16:55→21:37)
[2018-10-12] MEDS ORDERED: PYRIDOXINE PO SCH (21:00)
[2018-10-12] MEDS ORDERED: MELATONIN PO SCH (21:00)
[2018-10-12] MEDS: SENNOSIDES/DOCUSATE SODIUM TAB PO SCH (21:36)
[2018-10-12] MEDS: FAMOTIDINE 20 MG TAB PO SCH (21:37)
[2018-10-12] MEDS: ASPIRIN 325 MG TAB PO SCH (22:15)
[2018-10-13] MEDS: ceFAZolin 2 GM/DEXTROSE 100 ML IV SCH (01:48)
[2018-10-13] MEDS: ACETAMINOPHEN 325 MG TAB PO SCH ×2 (05:37→11:53)
[2018-10-13] MEDS: TRANEXAMIC ACID 650 MG TAB PO SCH (05:38)
--- NOTE | 2018-10-13 07:24 | PDIAF ---
- Diagnosis Diagnosis: right hip djd Code Status: Full Code - Medication Management Discharge Medications: electronically signed and located in the Home Medication List. - Orders Services needed: Home Care, Physical Therapy Home Care Face to Face: I certify that this patient was under my care and that I had the required [id number] encounter meeting the encounter requirements on the discharge day. My findings support the fact that the patient is homebound as defined in Home Care Face to Face Continued: CMS Chapter 7 Medicare Benefits Manual 30.1.1 , The condition of the patient is such that there exists a normal inability to leave home and consequently, leaving home would require a considerable and taxing effort. Isolation Type: None Diet Recommendation: no restrictions on diet Diet Texture: Regular Texture Diet Additional Instructions: TOTAL JOINT ARTHROPLASTY DISCHARGE INSTRUCTIONS 1. Your surgeon follows the [facility] protocol for reducing your risk of DVT (blood clots) following surgery. Medication will be ordered to prevent blood clots. A sudden increase in calf pain and/or swelling could indicate a blood clot in your leg. If this occurs, please call your surgeon or his/her wet process miller head assistant. An ultrasound of the leg may be necessary to diagnose a blood clot. If you have conditions that make you a higher risk for blood clots, your surgeon may use more aggressive ways to prevent them. Notify your surgeon if you think you are a high risk for blood clots. 2. Wear your white surgical stockings (TRACY hose) for 2 weeks. This decreases your swelling and may help prevent blood clots. It is ok to remove TRACY hose at night time to give your legs a break. 3. Swelling and bruising in the surgical leg is common. If you feel that it is excessive, please notify your surgeon. 4. Elevate your surgical leg with the ankle above the hip several times every day. Please keep the leg straight when you elevate by putting pillows under your foot. Do not put pillows under your knee. This will make being able to fully straighten more difficult. This is uncomfortable, but try to do it as much as possible. 5. For total knee replacements use compressive wrap on your knee for 3-5 days after surgery, then you can discontinue it. 6. Use a walker or crutches for 1-2 weeks. Progress your weight-bearing as tolerated. You may start to use a cane when you feel stable and safe. 7. You will receive physical therapy instructions in the hospital. Continue those exercises at home. There are additional exercises in the total joint booklet you were given before surgery. Outpatient physical therapy will begin 7- 10 days after surgery. Please schedule this in advance. 8. Use ice on your knee at least 3-5 times every day for 30 minutes. This helps reduce pain and swelling. Also use it at night before falling asleep. 9. Leave your surgical dressing in place for 2 weeks. Your dressing is water resistant, but not waterproof. Cover it with Saran Wrap or Uaxvy-x-Nfjn before showering. You may shower as soon as you feel safe entering a shower. If you notice bleeding from your incision 2 or 3 days after surgery, please notify your surgeon. 10. Due to narcotics, decreased activity and altered diet, most patients experience constipation after surgery. Use xpyq-hrh-qqfiaqw stool softeners while you are on narcotics. 11. You may drive a car when you are comfortable bearing weight, have good muscular control of your leg and are off narcotics. This usually occurs 2-4 weeks after surgery, depending on which leg was operated on. 12. If there are questions not addressed here, please refer the [facility] book given for more information. If you still have questions, please contact your surgeon s office. 13. If you have a life-threatening emergency, please call 911 and go to the emergency room immediately. For non-life threatening emergencies, please call your physicians office for advice before going to the emergency room. - Follow Up Care Current Providers and Referrals: Silas German MD [Medical Doctor] - Julieta Coffman MD [Primary Care Provider] -
[2018-10-13 08:05] VITALS: BP 128/85
[2018-10-13] MEDS: SENNOSIDES/DOCUSATE SODIUM TAB PO SCH (08:30)
[2018-10-13] MEDS: ASPIRIN 325 MG TAB PO SCH (08:30)
[2018-10-13] MEDS: LOSARTAN/HCTZ 50/12.5 1 TAB PO SCH (08:31)
[2018-10-13] MEDS: METOPROLOL SUCCINATE XR 50 MG TAB PO SCH (08:31)
[2018-10-13] MEDS: FAMOTIDINE 20 MG TAB PO SCH (08:31)
[2018-10-13] MEDS ORDERED: traMADol 50 MG TAB PO PRN (08:54)
[2018-10-13] MEDS ORDERED: LEVOTHYROXINE 137 MCG TAB PO SCH (09:00)
[2018-10-13] MEDS ORDERED: LOSARTAN/HCTZ 50/12.5 1 TAB PO SCH (09:00)
[2018-10-13] MEDS ORDERED: CHOLECALCIFEROL VIT D3 2,000 UNITS TAB/CAP PO SCH (09:00)
--- NOTE | 2018-10-13 09:17 | SOAPPROG ---
ANA MARÍA Progress Note Assessment/Plan: Assessment: s/p right ALEC, anterior approach, Erick assist - POD 1 Anemia - expected initially post-op . Asymptomatic. Will continue to monitor Plan: Discharge planning - doing better than expected. She will likely be going home today, will have support from family/friends. Home health PT to be arranged Continue PT - follow anterior ALEC precautions. WBAT, ROM as tolerated. PT will need to clear her prior to d/c Continue pain medication - oxycodone combined with Flexeril made her her groggy. Will try Tramadol Continue VTE ppx - aspirin 325 mg once daily, TRACY stewart, SCDs. She will continue aspirin until 6 weeks post-op and TRACY stewart until 2 weeks post-op Follow up with Dr. German's office for 2 week post-op appointment Subjective: Patient states her pain is tolerable at this time, but she is feeling quite groggy secondary to taking oxycodone and Flexeril last night. She would like to try Tramadol to see if makes her feel less groggy. She reports taking Tramadol in the past and did not have any adverse reaction to it. She has not done PT or OT yet this morning. She denies shortness of breath, chest pain, fever, chills, headache, nausea. Patient reports she still feels ready to go home today. Objective: Vital Signs Temp Pulse Resp BP Pulse Ox 36.6 C 74 16 128/85 H 92 10/13/18 08:00 10/13/18 08:31 10/13/18 08:00 10/13/18 08:31 10/13/18 08:00 Laboratory Results 10/13/18 04:24 10/12/18 10/13/18 10/14/18 05:59 05:59 05:59 Intake Total 2525 Output Total 410 20 Balance 2115 -20 Patient resting comfortably in bed, no acute distress. She is awake, alert and oriented x 3. RLE: Drain has been removed. New Mepilex dressings have been applied. Lower leg compartments are soft and nontender. Negative Homans sign. She can actively DF and PF her right foot and great toe against resistance. Grossly NVI distally. ICD10 Worksheet Patient Problems: Problems Problem Status Onset Unilateral primary osteoarthritis, right hip Acute Hypertension Acute
--- NOTE | 2018-10-13 09:34 | PDDCSUM ---
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 Clinical and radiographic features are consistent with this. Patient has failed attempts at conservative management, therefore, recommended operative right total hip replacement. HOSPITAL COURSE: Patient was admitted to the hospital floor after uncomplicated right total hip arthroplasty. Patient tolerated the procedure well and had no additional complications. At the time of discharge, patient is tolerating an oral diet, pain is well controlled on oral medications. She felt groggy on the morning of POD 1 due to taking Flexeril and oxycodone. She wanted to try Tramadol to see if it made her feels less groggy. After doing PT she felt that Tramadol helped reduce her discomfort and would like a script to go home with. She has taken Tramadol in the past without adverse reaction. She is voiding without difficulty. Dressing is clean, dry and intact. There is no swelling or calf tenderness. Patient has intact plantarflexion, dorsiflexion, EHL function. X-rays demonstrate anatomic positioning with no fracture or lucency. DISCHARGE ACTIVITY: Patient is WBAT and can perform ROM as tolerated. Patient was instructed to keep dressing clean, dry and intact. She can shower with Mepilex, but she is to not take a bath/submerge the right hip. Patient is to seek attention for increasing redness, swelling, drainage or discharge. DISCHARGE MEDICATIONS: oxycodone 5 mg 1-2 every 3 hours prn pain, cyclobenzaprine 10 mg PO every 8 hours prn spasm, Zofran 4 mg orally disintegrating tablet every 8 hours prn nausea, Tramadol 50 mg 1 every 6 hours prn pain, aspirin 325 mg PO daily. FOLLOW-UP: Follow up in 2 weeks. Again, patient is to seek attention for increasing redness, swelling, drainage or discharge.
--- NOTE | 2018-10-13 10:23 | ASMTLACE ---
LACE Length of stay for Answers: 2 days current admission Acuity / Level of Answers: Yes Care: Did the patient have an inpatient admission? Comorbidities - select Answers: Opioid dependence all that apply / Chronic pain Other Notes: HTN; Hypothyroid # of Emergency department Answers: 0 visits in the last 6 months Score: 10 Date Signed: 10/13/2018 09:58 AM Electronically Signed By:KELLY Young
--- NOTE | 2018-10-13 10:27 | ASMTCMCOM ---
CM Note CM Note Notes: PT rec home. Pt does want [facility]. Orders sent in [employer]. Nena with [facility] to meet with pt this morning. Date Signed: 10/13/2018 10:02 AM Electronically Signed By:KELLY Young
--- NOTE | 2018-10-13 12:22 | GOP ---
[f rep st] OPERATIVE REPORT DATE OF OPERATION: 10/12/2018 SURGEON: Silas German MD FIELD SALES MANAGER: Luis Lopez, Speech Clinician, for the entirety of the case. PREOPERATIVE DIAGNOSIS: Right hip degenerative joint disease. POSTOPERATIVE DIAGNOSIS: Right hip degenerative joint disease. PROCEDURE PERFORMED: Right total hip arthroplasty. FINDINGS: SPECIMENS: To pathology, the femoral head. ESTIMATED BLOOD LOSS: 300 cc. INDICATIONS: The patient is a 68-year-old woman with end-stage arthritis to her right hip. Clinical and radiographic features are consistent with end-stage arthritis. She has failed all attempts at c onservative management. I have, therefore, recommended operative intervention. I have outlined the surgical procedure, risks, benefits, and alternatives at length. She wishes to proceed. Appropriate consent was signed and placed in the patient's chart. DESCRIPTION OF PROCEDURE: The patient was identified in the preanesthesia area. The right hip clear ly demarcated as the operative site with indelible marker. She was given 2 g of Ancef intravenously en route to the operative suite. In the OR, spinal anesthetic was placed followed by additional willard tion. She was positioned in the supine position. The pelvis and both lower extremities were sterile ly prepped and draped in the usual fashion. Appropriate time-out procedure was carried out. Attenti on was first turned to the left hemipelvis. A 2 cm incision was made over the iliac crest, and 3 pin s were then placed followed by affixing the pelvic reference array. Attention was then turned to the right hip. An anterior approach was made. Thick subcutaneous flaps were elevated. The fascia over lying the tensor fascia roxanna was then opened in the origin of its fibers and the tensor retracted in a lateral direction. The underlying vascular structures were identified, ligated, cauterized, and tr ansected. The rectus was elevated off the anterior capsule. Retractors were placed in an extracapsu lar position. A T capsulotomy was then made. The retractors then placed into an intracapsular posit ion. An acetabular checkpoint was placed. A bony wedge was withdrawn from the femoral neck, as was the remaining femoral head. All soft tissue remnants to the acetabulum were sharply excised. The jose l ny landmarks were entered in the computer. Using a Invaluable[employer]plasty robot assistance, a resection was made with a 48 mm reamer with an opening angle of 40 degrees and anteversion of 20 degrees. A 48 mm acet abular shell was then impacted, confirmed to be fully seated. A 0 degree X3 liner was then placed, c onfirmed to be fully seated. Attention was turned to the femur which was delivered through the use o f soft tissue releases and retractor placement. The proximal canal was opened. Serial broaching car ried out to a size 3 stem. Trial reduction was carried out, and ultimately, a 32 mm +0 mm Biolox hea d was selected. Intraoperative fluoroscopy was used to confirm positioning and alignment. The hip w as stable through the full range of motion with full extension, external rotation to 90 degrees witho ut subluxation. The trial stem was withdrawn. Final size 3 stem was impacted, confirmed to be fully seated, and a 32 mm +0 mm neck length Biolox head connected to the cleansed trunnion. The hip was c opiously irrigated. The hip reduced. Leg lengths were equal. Stability profile was as above. A 10 -Finnish PVC drain was then placed. The tissue was irrigated with pulsatile lavage and closed in laye rs using 0 Vicryl, 2-0 Monocryl, and nikita. Sterile dressings were applied. The patient was awake elaine, extubated, and taken to the recovery room in good and stable condition. TOTAL TOURNIQUET TIME: None. COMPLICATIONS: None. IMPLANTS: José Miguel Trident II acetabular shell, size 48 mm, 0 degree liner, 32 mm inner diameter. Ac colade II 127 degree neck angle hip stem size 3. Biolox Delta ceramic head, 32 mm +0 mm neck length. DISPOSITION: To the recovery room, then the floor. /[id number]/MODL
--- NOTE | 2018-10-13 16:09 | ASDISCHSUM ---
Discharge Information Plan Status:Home with Home Health Medically Cleared to Leave: Discharge Date:10/13/2018 12:38 PM CM D/C Disposition: ADT D/C Disposition:Home Health Service Projected Discharge Date:10/13/2018 11:00 AM Transportation at D/C: Discharge Delay Reason: Follow-Up Date:10/13/2018 11:00 AM Discharge Slot: Final Diagnosis: Placement Information Referral Type:*Home Health Care Services Referral ID:[id number] Provider Name:[facility] ([facility]) Address 1:[address] [address] Address 2: City:[place] Selection Factors: State:[place] Patient Contact Information Contact Name:CARA Relationship:Daughter Address[address] Work Phone: [facility]:[place] Alternate Phone: State/Zip Code:[place] [address] Email: Financial Information Financial Class:Medicare Primary Plan Desc:MEDICARE INPATIENT Primary Plan Number:[id number] Secondary Plan Desc:[employer]/M[employer] SUPPLEMENT Secondary Plan Number:[id number] Assessment Information LACE LACE Length of stay for Answers: 2 days current admission Acuity / Level of Answers: Yes Care: Did the patient have an inpatient admission? Comorbidities - select Answers: Opioid dependence all that apply / Chronic pain Other Notes: HTN; Hypothyroid # of Emergency department Answers: 0 visits in the last 6 months Score: 10 Date Signed: 10/13/2018 09:58 AM Electronically Signed By:KELLY Young [facility] CM Progress Note CM Note CM Note Notes: Pt is s/p R [facility]. PT/OT evals are pending. If home care is indicated, [facility] is following. Pt lives up [address] in [place]. CM will follow for any d/c needs. D/C plan: TBD Date Signed: 10/12/2018 03:31 PM Electronically Signed By:KELLY Sullivan [facility] CM Progress Note CM Note CM Note Notes: PT rec home. Pt does want [facility]. Orders sent in [employer]. Nena with [facility] to meet with pt this morning. Date Signed: 10/13/2018 10:02 AM Electronically Signed By:KELLY Young Intervention Information
== END 2018-10-13 12:38 | disposition home health service (06) | DRG 470 ==
LOC: F3N 07:21
PROVIDERS: ADMIT Orthopaedic Surgery; ATTEND Orthopaedic Surgery
PROC: 8E0Y0CZ Robotic Assisted Procedure of Lower Extremity, Open Approach (ICD-10-PCS; principal; 2018-10-12 10:00)
PROC: 0SR904Z Replacement of Right Hip Joint with Ceramic on Polyethylene Synthetic Substitute, Open Approach (ICD-10-PCS; principal; 2018-10-12 10:00)
DX: M16.11 Unilateral primary osteoarthritis, right hip (principal); E03.9 Hypothyroidism, unspecified; I10 Essential (primary) hypertension; D64.9 Anemia, unspecified
CPT/HCPCS: 97116-GP; 97161-GP; 97165-GO; 97535-GO; J0171; J0690; J1885; J2250; J2270; J2704; J2795; J3010

== ENCOUNTER → 2018-11-24 | Outpatient (CLI) | payer OTHER, MEDICARE | LOC: BMCIMAGING 09:47 ==